=== PATIENT | female | born 1960 | race Caucasian/White ===

== ENCOUNTER → 2016-02-24 | Outpatient (CLI) | payer BC ==
[2016-02-24 16:37] LABS: BILIRUBIN,TOTAL 1.3 mg/dL (0.3-1.2); CALCIUM 10.1 mg/dL (8.7-10.7); TOTAL PROTEIN 7.3 g/dL (6.1-8.0)
== END ==
LOC: LAB 11:05
PROVIDERS: ATTEND Physician Assistant Medical
DX: E03.9 Hypothyroidism, unspecified (principal); I10 Essential (primary) hypertension
CPT/HCPCS: 80053; 84443